=== PATIENT | male | born 1950 | race Caucasian/White ===

== ENCOUNTER 2020-11-13 05:39 | Inpatient (IN) ==
[2020-11-08 10:52] LABS: Basophils % 0.4 % (0.0-0.8); Eosinophils # 0.2 10*3/uL (0.0-0.87); Eosinophils % 3.5 % (0.00-10.9); Hematocrit 33.4 VOL% (42.0-52.0); Hemoglobin 10.7 GM/DL (14.0-18.0); Immature Granulocytes % 0.4 %; Immature Granulocytes Absolute 0.02 #; Lymphocytes # 2.6 10*3/uL (1.4-4.0); Lymphocytes % 46.9 % (21.2-54.2); Mean Corpuscular Volume 93.3 FL (87-102); Mean Platelet Volume 9.3 FL (9.6-12.0); Monocytes % 6.7 % (1.7-12.7); Neutrophils % 42.1 % (38.7-73.9); Platelet Count 321 T/CUMM (130-400); Red Blood Count 3.58 MC/CUMM (3.8-5.5); Red Cell Distribution Width 13.8 % (9.3-17.3); White Blood Count 5.5 T/CUMM (4-12)
[2020-11-08 11:15] LABS: Albumin 3.8 G/DL (3.4-5.0); Bilirubin,Total 0.4 MG/DL (0.20-1.00); Calcium 8.9 MG/DL (8.5-10.1); Osmolality,Calculated 278.4 MOS/KG (273-304); Potassium 4.7 MMOL/L (3.5-5.1); Total Protein 6.9 G/DL (6.4-8.2)
[2020-11-13] MEDS ORDERED: cefTRIAXone 1,000 MG in SODIUM CHLORIDE 0.9% 100 ML IV ONE (06:00)
[2020-11-13] MEDS ORDERED: ACETAMINOPHEN 325 MG TABLET PO PRN (07:58)
[2020-11-13] MEDS ORDERED: ONDANSETRON 4 MG/2 ML VIAL IV PRN (07:58)
[2020-11-13] MEDS ORDERED: HYDROmorphone 2 MG/1 ML VIAL IV PRN (07:58)
[2020-11-13] MEDS ORDERED: PROMETHAZINE 25 MG/1 ML VIAL IM PRN (07:58)
[2020-11-13] MEDS ORDERED: diphenhydrAMINE 50 MG/1 ML VIAL IV PRN (08:16)
[2020-11-13] MEDS ORDERED: FAMOTIDINE 20 MG TABLET PO ONE (09:18)
[2020-11-13] MEDS ORDERED: DIAZEPAM 5 MG TABLET PO ONE (09:18)
[2020-11-13] MEDS ORDERED: SCOPOLAMINE 1.5 MG PATCH TRANSDERM ONE ×2 (09:18→09:19)
[2020-11-13] MEDS ORDERED: DIAZEPAM 5 MG TABLET ONE (09:18)
[2020-11-13] MEDS ORDERED: FAMOTIDINE 20 MG TABLET ONE (09:18)
[2020-11-13] MEDS ORDERED: SODIUM CHLORIDE 0.9% 1,000 ML IV SCH (10:00)
[2020-11-13] MEDS ORDERED: propofoL 200 MG/20 ML VIAL IV ONE (11:42)
[2020-11-13] MEDS ORDERED: ACETAMINOPHEN INJ 1,000 MG/100 ML VIAL IV ONE (11:42)
[2020-11-13] MEDS ORDERED: ONDANSETRON 4 MG/2 ML VIAL ONE (11:42)
[2020-11-13] MEDS ORDERED: fentaNYL 100 MCG/2 ML VIAL ONE (11:42)
[2020-11-13] MEDS ORDERED: DEXAMETHASONE 4 MG/1 ML VIAL ONE (11:42)
[2020-11-13] MEDS ORDERED: LIDOCAINE 2% 5 ML VIAL ONE (11:42)
[2020-11-13] MEDS ORDERED: FAMOTIDINE 20 MG/2 ML VIAL IV ONE (12:19)
[2020-11-13] MEDS ORDERED: ePHEDrine 50 MG/ML VIAL ONE (12:35)
[2020-11-13] MEDS ORDERED: GLYCOPYRROLATE 0.4 MG/2 ML VIAL ONE (12:59)
[2020-11-13] MEDS ORDERED: BELLADONNA/OPIUM 30 MG SUPP RECTAL ONE (14:33)
[2020-11-13] MEDS ORDERED: SEVOFLURANE 1 UNIT/15 MINUTE INH ONE (14:34)
[2020-11-13] MEDS ORDERED: hydrOXYzine HCL 25 MG TABLET PO PRN (14:47)
[2020-11-13 15:49] LABS: Basophils % 0.4 % (0.0-0.8); Eosinophils % 0.4 % (0.00-10.9); Hematocrit 32.4 VOL% (42.0-52.0); Hemoglobin 10.5 GM/DL (14.0-18.0); Immature Granulocytes % 0.4 %; Immature Granulocytes Absolute 0.02 #; Lymphocytes # 0.9 10*3/uL (1.4-4.0); Lymphocytes % 17.1 % (21.2-54.2); Mean Corpuscular HGB Conc 32.4 GM/DL (32-36); Mean Corpuscular Volume 92.3 FL (87-102); Mean Platelet Volume 9.3 FL (9.6-12.0); Neutrophils % 78.7 % (38.7-73.9); Platelet Count 208 T/CUMM (130-400); Red Blood Count 3.51 MC/CUMM (3.8-5.5); Red Cell Distribution Width 14.2 % (9.3-17.3)
[2020-11-13 16:14] LABS: Calcium 8.2 MG/DL (8.5-10.1); Osmolality,Calculated 279.5 MOS/KG (273-304); Potassium 4.2 MMOL/L (3.5-5.1)
[2020-11-13] MEDS ORDERED: SIMETHICONE CHEW 80 MG TABLET PO PRN (16:30)
[2020-11-13] MEDS: SODIUM CHLORIDE 0.9% 1,000 ML IV SCH (17:05)
[2020-11-13] MEDS: LACTATED RINGERS 1,000 ML IV SCH (17:57)
[2020-11-13] MEDS: NYSTATIN POWDER 15 GM BOTTLE TOP SCH (20:48)
[2020-11-14 05:09] LABS: Basophils % 0.2 % (0.0-0.8); Hematocrit 30.9 VOL% (42.0-52.0); Hemoglobin 9.8 GM/DL (14.0-18.0); Immature Granulocytes % 0.4 %; Immature Granulocytes Absolute 0.03 #; Lymphocytes # 1.2 10*3/uL (1.4-4.0); Lymphocytes % 14.9 % (21.2-54.2); Mean Corpuscular HGB Conc 31.7 GM/DL (32-36); Mean Corpuscular Volume 92.2 FL (87-102); Mean Platelet Volume 9.8 FL (9.6-12.0); Monocytes % 5.6 % (1.7-12.7); Neutrophils % 78.9 % (38.7-73.9); Platelet Count 234 T/CUMM (130-400); Red Blood Count 3.35 MC/CUMM (3.8-5.5); Red Cell Distribution Width 13.7 % (9.3-17.3)
[2020-11-14 05:24] LABS: Calcium 8.5 MG/DL (8.5-10.1); Osmolality,Calculated 275.8 MOS/KG (273-304); Potassium 4.6 MMOL/L (3.5-5.1)
[2020-11-14 05:26] LABS: Calcium 8.3 MG/DL (8.5-10.1); Osmolality,Calculated 279.5 MOS/KG (273-304); Potassium 4.6 MMOL/L (3.5-5.1)
[2020-11-14] MEDS: LACTATED RINGERS 1,000 ML IV SCH (06:01)
[2020-11-14] MEDS: SODIUM CHLORIDE 0.9% 1,000 ML IV SCH (06:01)
[2020-11-14] MEDS ORDERED: LEVOTHYROXINE 25 MCG TABLET PO SCH (06:30)
[2020-11-14 07:59] VITALS: BP 141/61
[2020-11-14] MEDS ORDERED: cefTRIAXone 1,000 MG in SODIUM CHLORIDE 0.9% 100 ML IV SCH (08:00)
[2020-11-14] MEDS: NYSTATIN POWDER 15 GM BOTTLE TOP SCH (08:45)
[2020-11-14] MEDS ORDERED: FLUCONAZOLE 200 MG TABLET PO SCH (09:00)
[2020-11-14] MEDS ORDERED: ALFUZOSIN 10 MG TABLET PO SCH (09:00)
[2020-11-19 16:31] LABS: Stone Analysis Interpretation SEE COMMENTS
[2020-11-19 18:01] LABS: Stone Analysis Interpretation SEE COMMENTS; Stone Source Left Ureter
== END 2020-11-14 09:29 | disposition home health service (06) | DRG 660 ==
LOC: N.OR 05:39 → N.SDSINP 05:41 → N.3E 15:55
PROVIDERS: ADMIT Surgery; ATTEND Surgery